=== PATIENT | female | born 1990 | race Caucasian/White ===

== ENCOUNTER 2021-08-14 19:29 | Emergency (ER) | payer MEDICAID, OTHER ==
[~2021-08-14] VITALS: Ht 167.6 cm; Wt 73.0 kg
[2021-08-14] MEDS ORDERED: IBUP-2028 MT (21:20)
[2021-08-14 21:39] VITALS: BP 113/76
== END 2021-08-14 21:47 | disposition home or self-care (01) ==
LOC: ER 19:29
DX: S93.401A Sprain of unspecified ligament of right ankle, initial encounter (principal); W18.30XA Fall on same level, unspecified, initial encounter; Y93.89 Activity, other specified; Y92.89 Other specified places as the place of occurrence of the external cause; Y99.8 Other external cause status
CPT/HCPCS: 73610; 73630; 99284

== ENCOUNTER 2022-09-18 11:47 | Emergency (ER) | payer OTHER ==
[~2022-09-18] VITALS: Ht 162.6 cm; Wt 59.0 kg
[~2022-09-18 11:47] MED LIST: IBUP-2028 MT
[2022-09-18] MEDS ORDERED: SODIUM CHLORIDE 0.9% 1,000 ML IV ONE ×2 (12:15→15:45)
[2022-09-18] MEDS ORDERED: ONDANSETRON HCL 4MG/2ML INJ IV ONE (13:00)
[2022-09-18 13:11] LABS: BASOPHILS % 0.3 % (0.0-2.0); EOSINOPHILS % 0.5 % (0.0-5.0); HEMATOCRIT. 35.8 % (36.0-48.0); HEMOGLOBIN. 12.3 g/dL (12.0-16.0); LYMPHOCYTES % 8.8 % (20.0-50.0); MEAN CORPUSCULAR HEMOGLOBIN 31.6 pg (28.0-32.0); MEAN CORPUSCULAR VOLUME 92.4 fL (81.0-99.0); MEAN PLATELET VOLUME 7.5 fl (7.4-10.4); MONOCYTES % 7.3 % (2.0-8.0); NEUTROPHILS % 83.1 % (40.0-76.0); PLATELET 265 x1000/uL (130-400); RED BLOOD CELL COUNT 3.88 mill/uL (4.2-5.4); RED CELL DISTRIBUTION WIDTH 13.3 % (11.6-14.6)
[2022-09-18 13:19] LABS: CLARITY URINE CLEAR (CLEAR); COLOR URINE YELLOW (YELLOW); KETONES URINE TRACE (NEGATIVE); LEUKOCYTE ESTERASE URINE NEGATIVE (NEGATIVE); NITRITE URINE NEGATIVE (NEGATIVE); OCCULT BLOOD URINE NEGATIVE (NEGATIVE); PH URINE >=9.0 (4.5-8.0); PROTEIN URINE 1+ (NEGATIVE)
[2022-09-18 13:20] LABS: CHLORIDE 110 mEq/L (98-107)
[2022-09-18 13:22] LABS: INR 1.1; PROTHROMBIN TIME 11.8 sec (9.6-11.0)
[2022-09-18 13:30] LABS: HCG SCREEN NEGATIVE
[2022-09-18 13:47] LABS: ETHANOL BLOOD < 10 mg/dL
[2022-09-18 14:16] LABS: *AMPHETAMINES SCREEN URINE NEGATIVE (NEGATIVE); *BARBITURATES SCREEN URINE NEGATIVE (NEGATIVE); *BENZODIAZEPINES SCREEN URINE NEGATIVE (NEGATIVE); *COCAINE SCREEN URINE NEGATIVE (NEGATIVE); METHADONE URINE SCREEN NEGATIVE (NEGATIVE); OPIATES URINE SCREEN NEGATIVE (NEGATIVE); PHENCYCLIDINE URINE SCREEN NEGATIVE (NEGATIVE)
[2022-09-18 14:28] LABS: CANNABINOID URINE SCREEN PRESUMTIVE POSITIVE (NEGATIVE)
[2022-09-18 17:12] VITALS: BP 90/60
== END 2022-09-18 17:16 | disposition home or self-care (01) ==
LOC: ER 12:17
DX: R55 Syncope and collapse (principal); E86.0 Dehydration; D64.9 Anemia, unspecified
CPT/HCPCS: 36415; 71045; 80053; 80305; 80320; 81003; 81025; 84484; 84703; 85025; 85610; 86850; 86900; 86901; 93005; 96360; 96361; 99285; J7030; G0480